=== PATIENT | female | born 1960 | race Caucasian/White ===

== ENCOUNTER 2016-07-21 21:37 | Emergency (ER) | payer SELFPAY ==
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
[2016-07-21] MEDS ORDERED: HYDROCODONE/APAP 10/325 TABLET PO ONE (22:40)
[2016-07-21] MEDS: CYCLOBENZAPRINE 10MG TABLET PO ONE (23:07)
== END 2016-07-21 23:08 | disposition home or self-care (01) ==
LOC: ER 21:37
DX: S46.911A Strain of unspecified muscle, fascia and tendon at shoulder and upper arm level, right arm, initial encounter (principal); S16.1XXA Strain of muscle, fascia and tendon at neck level, initial encounter; V40.0XXA Car driver injured in collision with pedestrian or animal in nontraffic accident, initial encounter; Y92.410 Unspecified street and highway as the place of occurrence of the external cause
CPT/HCPCS: 72125; 99283; 99284